=== PATIENT | female | born 1935 | race Caucasian/White ===

== ENCOUNTER → 2016-10-26 | Outpatient (CLI) | payer MEDICARE ==
--- NOTE | 2016-10-27 07:01 | XR ---
EXAMINATION TYPE: XR cervical spine comp DATE OF EXAM: 10/26/2016 9:25 AM TECHNIQUE: Frontal, lateral, oblique, and open mouth view of the cervical spine are obtained. HISTORY: Cervicalgia per order COMPARISON: None FINDINGS: Osseous structures are demineralized which is noted to lower radiographic sensitivity. The cervical spine is visualized in its entirety from C1 thru the inferior C7 vertebral body level, ther e is grade 1 retrolisthesis of C3 on C4 and C4 on C5 without evidence of acute fracture or dislocatio n. There is suboptimal evaluation of C7-T1 level without attempted swimmer's view. The pre-vertebral soft tissue appears within normal limits. The C1-C2 articulation is within normal limits on the ope n mouth view. Vertebral body heights are maintained. There is multilevel moderate to advanced disc sp meli narrowing with multilevel spurring from C3-C4 through C6-C7 level. The oblique images are within normal limits. Overlying soft tissue is unremarkable. IMPRESSION: Demineralization and moderate to advanced multilevel degenerative changes as detailed abo ve.
== END | disposition home or self-care (01) ==
LOC: RADXRYALE 09:03
PROVIDERS: ATTEND Internal Medicine
DX: M47.812 Spondylosis without myelopathy or radiculopathy, cervical region (principal); M81.0 Age-related osteoporosis without current pathological fracture
CPT/HCPCS: 72050

== ENCOUNTER 2018-02-05 08:56 | Day surgery (SDC) | payer MEDICARE ==
[2018-01-31 13:36] VITALS: BMI 23.1
[2018-02-05] MEDS ORDERED: ceFAZolin IN SWFI 2 GM/20 ML SYRINGE IVP ONE (09:37)
[2018-02-05] MEDS ORDERED: ceFAZolin 1,000 MG in SODIUM CHLORIDE 0.9% IRRIGATIO 250 ML IRRIGATION ONE (09:37)
[2018-02-05 10:19] LABS: Anion Gap 16 mmol/L; Blood Urea Nitrogen 14 mg/dL (7-17); Calcium 9.6 mg/dL (8.4-10.2); Carbon Dioxide 18 mmol/L (22-30); Chloride 102 mmol/L (98-107); Glucose 112 mg/dL (74-99); Sodium 136 mmol/L (137-145)
[2018-02-05 10:38] LABS: Basophils % (A) 1 %; Eosinophils # (A) 0.1 k/uL (0-0.7); Eosinophils % (A) 1 %; HCT 41.1 % (34.0-46.0); HGB 14.2 gm/dL (11.4-16.0); Lymphocytes # (A) 1.1 k/uL (1.0-4.8); Lymphocytes % (A) 19 %; MCH 29.5 pg (25.0-35.0); MCHC 34.5 g/dL (31.0-37.0); MCV 85.6 fL (80.0-100.0); Mean Platelet Volume 6.8; Monocytes # (A) 0.5 k/uL (0-1.0); Monocytes % (A) 8 %; Neutrophils # (A) 4.3 k/uL (1.3-7.7); Neutrophils % (A) 70 %; Platelet Count 252 k/uL (150-450); RDW 13.2 % (11.5-15.5); WBC 6.1 k/uL (3.8-10.6)
[2018-02-05] MEDS ORDERED: IOPAMIDOL-370 50ML BTL INJ ONE (10:40)
[2018-02-05] MEDS ORDERED: IV FLUID CONTINUATION 400 ML IV ONE (10:41)
[2018-02-05] MEDS ORDERED: fentaNYL (PF) 50 MCG/ML 2 ML AMP IVP ONE (10:55)
[2018-02-05] MEDS: LIDOCAINE 1% (PF) 10MG/ML VIAL SQ ONE ×2 (11:06→11:56)
[2018-02-05] MEDS ORDERED: MIDAZOLAM 2 MG/2 ML VIAL IVP ONE (11:07)
[2018-02-05] MEDS ORDERED: hydrALAZINE HCL 20 MG/ML 1 ML VIAL IVP ONE (11:13)
--- NOTE | 2018-02-05 12:26 | P.PCN ---
Date of Procedure: 02/05/18 Preoperative Diagnosis: Sick sinus syndrome Postoperative Diagnosis: The same Procedure(s) Performed: Permanent pacemaker insertion, axillary venography Description of Procedure: HISTORY: This is a 82-year-old female who was referred for permanent pacemaker implantation by Dr. VC Mccullough for sick sinus syndrome. CONSENT:I have discussed the risks, benefits and alternative therapies for the above-mentioned procedure and for both sedation/analgesia as well as necessary blood product administration, if indicated, as they pertain to this patient. The patient has indicated understanding and acceptance of the risks and procedures discussed. PROCEDURE: Patient was brought to the lab in a fasting state. Patient was prepped and draped in the usual fashion. Patient was given IV sedation with fentanyl and Versed. The skin below the left clavicle was infiltrated with lidocaine. An incision was made parallel to deltopectoral groove was deepened until the pectoral fascia was exposed. A pocket was created by blunt dissection and cautery. Axillary venography was performed to delineate the course of the axillary vein. 2 sticks were performed into extrathoracic portion of the axillary vein and 2 sheaths were advanced over the guidewires and left in subclavian vein. Conscious Sedation: Versed 0.5 mg Fentanyl 50 g Duration 60 minutes LEADS: ATRIAL: This is manufactured by [employer]. Model number is [id number] and the serial number is [id number] VENTRICULAR: This is manufactured by [employer]. Model number is [id number]. The serial number is [id number]. The ventricular lead is maneuvered l with help of a straight and curved stylets into the left ventricle apical region. Satisfactory position was obtained and threshold measurements were made. The atrial lead was then maneuvered into the right atrial appendage. And thresholds were obtained. THRESHOLDS: ATRIUM: The minimal pacing threshold is 0.4 at pulse width of 0.4. The impedance is 793. P-wave: 3.3 VENTRICLE:. There minimal pacing threshold is 0.4 at pulse width of 0.4. The impedance is 1358 R-wave: 10.8 The leads and pulse generator remained in the pocket after it was washed with antibiotics. Pocket was closed in the usual fashion. The fascia was closed with 2-0 Prolene ,the subcutaneous tissue was closed with 3-0 Prolene and the skin was closed with 4-0 Prolene. PROGRAMMING: MODE: AAIR with mode switch to DDDR RATE: 60 to 1:30 OUTPUT: Atrium: 3.5 V Ventricle: 3.5 V FINAL IMPRESSION: #1 axillary venography #2. Dual-chamber permanent pacemaker. COMPLICATIONS: None PLAN: Patient will be monitored on the telemetry unit. Prophylactic antibiotics will be continued. Chest x-ray in a.m.
--- NOTE | 2018-02-05 12:28 | P.PCN ---
Date of Procedure: 02/05/18 Preoperative Diagnosis: History of loop recorder insertion, sick sinus syndrome Postoperative Diagnosis: The same Procedure(s) Performed: Removal of the loop recorder. Description of Procedure: Patient was already prepped and draped in the usual fashion. The skin over the existing pulse generator was infiltrated with lidocaine. An incision was made in the skin and was deepened until the device is exposed. The tissue connections are freed from the device and the device was pulled out of pocket. The pocket was closed in the usual fashion. #1. Successful explantation of loop recorder.
[2018-02-05] MEDS ORDERED: hydrALAZINE HCL 50 MG TAB PO STA (13:06)
[2018-02-05] MEDS ORDERED: amLODIPine 5 MG TAB PO STA (13:14)
[2018-02-05] MEDS ORDERED: ACETAMINOPHEN IV (For NPO) 1,000 MG in EMPTY BAG 1 BAG IVPB ONE (15:00)
[2018-02-05] MEDS: SODIUM CHLORIDE 0.9% 1,000 ML IV SCH ×2 (17:28→17:46)
[2018-02-05] MEDS: ceFAZolin IN SWFI 2 GM/20 ML SYRINGE IVP SCH ×2 (17:45→22:56)
[2018-02-05] MEDS: busPIRone HCl 10 MG TAB PO SCH ×2 (17:45→21:10)
[2018-02-05] MEDS: hydrALAZINE HCL 50 MG TAB PO SCH ×2 (17:45→21:11)
[2018-02-05] MEDS: FAMOTIDINE 20 MG TAB PO SCH (21:12)
[2018-02-05] MEDS: MELOXICAM 7.5 MG TAB PO SCH (21:12)
[2018-02-05] MEDS: ACETAMINOPHEN TAB 325 MG TAB PO PRN (22:41)
[2018-02-05] MEDS: ZOLPIDEM 5 MG TAB PO PRN (22:41)
[2018-02-06] MEDS: ceFAZolin IN SWFI 2 GM/20 ML SYRINGE IVP SCH ×2 (06:52→11:47)
--- NOTE | 2018-02-06 08:27 | XR ---
EXAMINATION TYPE: XR chest 2V DATE OF EXAM: 02/06/2018 COMPARISON: None HISTORY: 82-year-old female lead placement check TECHNIQUE: Frontal and lateral views FINDINGS: Left anterior chest wall pacemaker generator with right atrial and right ventricular leads. Heart bor derline to mildly enlarged. Diffuse interstitial prominence with hyperinflation. There is some marginated density along the right heart margin at the medial right base that could rep resent positional artifact. No pleural effusion or pneumothorax. IMPRESSION: 1. COPD with borderline heart size. 2. Right atrial and right ventricular pacer leads. 3. Focal medial right basilar opacity. Uncertain if this represents projection artifact or an underly ing area of consolidation/airspace disease. Follow-up recommended with dedicated, high quality PA vie w of the chest. If the finding persists, CT may be indicated.
[2018-02-06] MEDS: SODIUM CHLORIDE 0.9% 1,000 ML IV SCH ×4 (08:38→20:13)
[2018-02-06] MEDS: FAMOTIDINE 20 MG TAB PO SCH ×2 (08:42→20:23)
[2018-02-06] MEDS: PANTOPRAZOLE 40 MG TABLET PO SCH (08:42)
[2018-02-06] MEDS: MELOXICAM 7.5 MG TAB PO SCH ×2 (08:42→20:23)
[2018-02-06] MEDS: amLODIPine 10 MG TAB PO SCH (08:42)
[2018-02-06] MEDS: hydrALAZINE HCL 50 MG TAB PO SCH ×4 (08:42→22:03)
[2018-02-06] MEDS: busPIRone HCl 10 MG TAB PO SCH ×3 (08:43→20:23)
[2018-02-06] MEDS ORDERED: CALCIUM CARBONATE 500 MG CHEWABLE PO SCH (12:00)
--- NOTE | 2018-02-06 14:43 | P.CONS ---
History of Present Illness - Reason for Consult Generalized deconditioning disposition recommendations - History of Present Illness Patient [id number]-pava-[id number] pleasant female admitted for elective Holter monitor placement patient's oxacillin underwent procedure. Patient denied any fever chills lightheadedness patient had nausea vomiting. Patient blood pressure is bit elevated was started back on her antidepressant medications. Patient takes amlodipine and GABRIELE inhibitor accommodation which was started back today. Patient has a sling to the left arm after Holter monitor placement patient normally uses a walker because of this new sling and his has recent procedure patient cannot use her walker at home because of which patient wanted to go to rehab physical therapy evaluated the patient. Please refer to the documentation for further details. Basic metabolic profile did not show any significant abnormality. Review of Systems REVIEW OF SYSTEMS: CONSTITUTIONAL: No fever, no malaise, no fatigue. HEENT: No recent visual problems or hearing problems. Denied any sore throat. CARDIOVASCULAR: No chest pain, orthopnea, PND, no palpitations, no syncope. PULMONARY: No shortness of breath, no cough, no hemoptysis. GASTROINTESTINAL: No diarrhea, no nausea, no vomiting, no abdominal pain. Normoactive bowel sounds. NEUROLOGICAL: No headaches, no weakness, no numbness. HEMATOLOGICAL: Denies any bleeding or petechiae. GENITOURINARY: Denies any burning micturition, frequency, or urgency. MUSCULOSKELETAL/RHEUMATOLOGICAL: Denies any joint pain, swelling, or any muscle pain. ENDOCRINE: Denies any polyuria or polydipsia. The rest of the 14-point review of systems is negative. Past Medical History Past Medical History: CVA/TIA, GERD/Reflux, Hyperlipidemia, Hypertension, Osteoarthritis (OA) Additional Past Medical History / Comment(s): see Dr Vieira H&P, episodes of passing out, hx sarcoidosis, uses a walker, left side weakness from TIA, hiatal hernia, something on thryoid showed on recent CT, hx anemia History of Any Multi-Drug Resistant Organisms: None Reported Past Surgical History: Appendectomy, Breast Surgery, Cholecystectomy, Heart Catheterization, Hysterectomy, Orthopedic Surgery Additional Past Surgical History / Comment(s): elbow surgery-not sure which, shweta breast biopsy, lung biopsy, shweta cataracts Past Anesthesia/Blood Transfusion Reactions: Motion Sickness Past Psychological History: No Psychological Hx Reported Smoking Status: Never smoker Past Alcohol Use History: None Reported Past Drug Use History: None Reported - Past Family History Sister(s) Family Medical History: Cancer Father Family Medical History: Pulmonary Embolus Medications and Allergies Home Medications Medication Instructions Recorded Confirmed Type Meloxicam [Mobic] 7.5 mg PO BID 02/03/16 01/31/18 History Omeprazole [PriLOSEC] 20 mg PO BID 02/03/16 01/31/18 History busPIRone HCL 10 mg PO TID 02/03/16 01/31/18 History hydrALAZINE HCL [Apresoline] 50 mg PO TID 02/03/16 01/31/18 History Calcium Carbonate [Calcium] 1,200 mg PO SUWE 01/31/18 02/05/18 History Famotidine 20 mg PO BID 01/31/18 01/31/18 History amLODIPine BESYLATE/BENAZEPRIL 1 cap PO DAILY 01/31/18 01/31/18 History [amLODIPine BESYLATE/BENAZEPRIL 10-40 mg] Zolpidem Tartrate [Ambien] 5 mg PO HS PRN 02/05/18 02/05/18 History Allergies Allergy/AdvReac Type Severity Reaction Status Date / Time lidocaine Allergy passed out Verified 01/31/18 13:24 nitroglycerin Allergy passed out Verified 01/31/18 13:24 Sulfa (Sulfonamide Allergy Unknown Verified 01/31/18 13:24 Antibiotics) Childhood Physical Exam Vitals: Vital Signs Temp Pulse Resp BP Pulse Ox 02/06/18 12:00 82 02/06/18 10:42 97.8 F 93 18 184/82 95 02/06/18 07:20 97.6 F 81 18 196/90 97 02/06/18 04:00 16 02/06/18 03:36 97.9 F 83 16 180/86 95 02/06/18 00:00 16 02/05/18 23:25 97.7 F 86 16 188/84 92 L 02/05/18 19:48 83 16 02/05/18 19:04 98.3 F 83 16 184/83 95 02/05/18 17:44 193/86 02/05/18 16:00 16 02/05/18 15:30 16 185/81 94 L Intake and Output 02/05/18 02/06/18 02/06/18 22:59 06:59 14:59 Intake Total 240 Balance 240 Intake: Oral 240 Other: Voiding Method Toilet Toilet # Voids 2 1 1 Weight 63.049 kg PHYSICAL EXAMINATION: GENERAL: The patient is alert and oriented x3, not in any acute distress. Well developed, well nourished. HEENT: Pupils are round and equally reacting to light. EOMI. No scleral icterus. No conjunctival pallor. Normocephalic, atraumatic. No pharyngeal erythema. No thyromegaly. CARDIOVASCULAR: S1 and S2 present. No murmurs, rubs, or gallops. PULMONARY: Chest is clear to auscultation, no wheezing or crackles. ABDOMEN: Soft, nontender, nondistended, normoactive bowel sounds. No palpable organomegaly. MUSCULOSKELETAL: No joint swelling or deformity. Postoperatively patient has a sling to left arm EXTREMITIES: No cyanosis, clubbing, or pedal edema. NEUROLOGICAL: Gross neurological examination did not reveal any focal deficits. SKIN: No rashes. Results CBC & Chem 7: 02/05/18 10:00 02/05/18 10:00 Assessment and Plan Plan: -Generalized deconditioning and inability to use her walker, patient probably need to go to subacute rehabilitation. -Hypertension elevated blood pressures secondary to IV fluids and patient was not taking her antidepressant medications which are started back. -Possibly of sick sinus syndrome for which patient underwent Holter monitor placement -Gastroesophageal reflux disease -Hyperlipidemia -CVA TIA in the past. -Patient will need GI prophylaxis as well as DVT prophylaxis pharmacologic For above-mentioned chronic medical problems patient will be resumed and continued on her home medications which have is appropriate
[2018-02-06] MEDS: HEPARIN SODIUM,PORCINE 5,000 UNIT/ML 1 ML VIAL SQ SCH (20:24)
[2018-02-06] MEDS: ZOLPIDEM 5 MG TAB PO PRN (22:09)
[2018-02-06] MEDS: ACETAMINOPHEN TAB 325 MG TAB PO PRN (22:10)
[2018-02-07] MEDS: hydrALAZINE HCL 50 MG TAB PO SCH ×4 (08:28→20:17)
[2018-02-07] MEDS: amLODIPine 10 MG TAB PO SCH (08:28)
[2018-02-07] MEDS: FAMOTIDINE 20 MG TAB PO SCH ×2 (08:28→20:16)
[2018-02-07] MEDS: MELOXICAM 7.5 MG TAB PO SCH ×2 (08:28→20:16)
[2018-02-07] MEDS: PANTOPRAZOLE 40 MG TABLET PO SCH (08:29)
[2018-02-07] MEDS: busPIRone HCl 10 MG TAB PO SCH ×3 (08:29→20:16)
[2018-02-07] MEDS: HEPARIN SODIUM,PORCINE 5,000 UNIT/ML 1 ML VIAL SQ SCH ×2 (08:29→20:17)
--- NOTE | 2018-02-07 12:58 | P.PN ---
Subjective Patient is status post Holter monitor placement patient blood pressures elevated consistently I'm adding hydrochlorothiazide patient denied any symptoms at this time. Constitutional: Denied any fatigue denied any fever. Cardio vascular: denied any chest pain, palpitations Gastrointestinal denied any nausea vomiting Pulmonary: Denied any shortness of breath cough Neurologic denied any new focal deficits Objective - Vital Signs Vital signs: Vital Signs Temp 97.7 F 02/07/18 11:25 Pulse 81 02/07/18 12:00 Resp 18 02/07/18 12:00 BP 191/90 02/07/18 11:25 Pulse Ox 94 L 02/07/18 11:25 Intake & Output 02/06/18 02/07/18 02/07/18 18:59 06:59 18:59 Intake Total 690 240 400 Balance 690 240 400 Weight 63.049 kg Intake: Oral 490 240 400 Other 200 Other: Voiding Method Toilet Toilet # Voids 1 2 1 - Exam PHYSICAL EXAMINATION: GENERAL: The patient is alert and oriented x3, not in any acute distress. Well developed, well nourished. HEENT: Pupils are round and equally reacting to light. EOMI. No scleral icterus. No conjunctival pallor. Normocephalic, atraumatic. No pharyngeal erythema. No thyromegaly. CARDIOVASCULAR: S1 and S2 present. No murmurs, rubs, or gallops. PULMONARY: Chest is clear to auscultation, no wheezing or crackles. ABDOMEN: Soft, nontender, nondistended, normoactive bowel sounds. No palpable organomegaly. MUSCULOSKELETAL: No joint swelling or deformity. EXTREMITIES: No cyanosis, clubbing, or pedal edema. NEUROLOGICAL: Gross neurological examination did not reveal any focal deficits. SKIN: No rashes. - Labs CBC & Chem 7: 02/05/18 10:00 02/05/18 10:00 Assessment and Plan Plan: -Generalized deconditioning and inability to use her walker, patient probably need to go to subacute rehabilitation. Awaiting approval from her insurance -Hypertension elevated blood pressures secondary to IV fluids which were discontinued yesterday in spite of which her blood pressure is consistently high started on hydrochlorothiazide and basic metabolic profile will be obtained as her sodium remains low normal at this time. -Possibly of sick sinus syndrome for which patient underwent Holter monitor placement -Gastroesophageal reflux disease -Hyperlipidemia -CVA TIA in the past. -Patient will need GI prophylaxis as well as DVT prophylaxis pharmacologic For above-mentioned chronic medical problems patient will be resumed and continued on her home medications which have is appropriate
[2018-02-07] MEDS: HYDROCHLOROTHIAZIDE 50 MG TAB PO SCH (13:17)
[2018-02-07] MEDS: ZOLPIDEM 5 MG TAB PO PRN (21:44)
[2018-02-07] MEDS: ACETAMINOPHEN TAB 325 MG TAB PO PRN (21:44)
[2018-02-08 07:14] LABS: Anion Gap 11 mmol/L; Blood Urea Nitrogen 11 mg/dL (7-17); Calcium 9.4 mg/dL (8.4-10.2); Carbon Dioxide 22 mmol/L (22-30); Chloride 97 mmol/L (98-107); Glucose 96 mg/dL (74-99); Potassium 3.3 mmol/L (3.5-5.1); Sodium 130 mmol/L (137-145)
[2018-02-08] MEDS: busPIRone HCl 10 MG TAB PO SCH (07:51)
[2018-02-08] MEDS: PANTOPRAZOLE 40 MG TABLET PO SCH (07:52)
[2018-02-08] MEDS: FAMOTIDINE 20 MG TAB PO SCH (07:52)
[2018-02-08] MEDS: hydrALAZINE HCL 50 MG TAB PO SCH ×2 (07:52→12:42)
[2018-02-08] MEDS: amLODIPine 10 MG TAB PO SCH (07:52)
[2018-02-08] MEDS: HYDROCHLOROTHIAZIDE 50 MG TAB PO SCH (07:53)
[2018-02-08] MEDS: MELOXICAM 7.5 MG TAB PO SCH (07:53)
[2018-02-08] MEDS: HEPARIN SODIUM,PORCINE 5,000 UNIT/ML 1 ML VIAL SQ SCH (07:58)
--- NOTE | 2018-02-08 08:22 | P.PN ---
Subjective Progress Note Date: 02/08/18 82-year-old female was admitted for permanent pacemaker implantation because of sick sinus syndrome. Patient had a dual-chamber pacemaker and has done well. Her blood pressure still fluctuating in the range of 180-200 systolic. She is on hydralazine and Norvasc. I'm going to add Catapres 0.1 mg once daily and see. She can tolerate. She is going to a nursing facility because of her being alone and unable to handle post Pacemaker management. She also uses walker. Patient is otherwise doing well. Lungs are clear. Heart is regular Objective - Vital Signs Vital signs: Vital Signs Temp 97.6 F 02/08/18 08:00 Pulse 96 02/08/18 08:00 Resp 16 02/08/18 08:00 BP 198/98 02/08/18 08:00 Pulse Ox 96 02/08/18 08:00 Intake & Output 02/07/18 02/08/18 02/08/18 18:59 06:59 18:59 Intake Total 1440 Balance 1440 Intake: Oral 1240 Other 200 Other: Voiding Method Toilet Toilet # Voids 1 2 - Exam GENERAL EXAM: Patient is alert and oriented and doesn't appear to be in any acute distress HEENT: Normocephalic. Normal reaction of pupils, equal size, normal range of extraocular motion. No erythema or exudates in the throat. NECK: No masses, no nuchal rigidity. CHEST: No chest wall deformity. LUNGS: Equal air entry with no crackles or wheeze. HEART: S1 and S2 normal with no audible mumurs or gallops. Regular rhythm, femorals equal on both sides.. ABDOMEN: No hepatosplenomegaly, normal bowel sounds, no guarding or rigidity. SKIN: No rashes CENTRAL NERVOUS SYSTEM: No focal deficits. EXTREMITIES: No cyanosis, clubbing or edema. - Labs CBC & Chem 7: 02/05/18 10:00 02/08/18 06:30 Labs: Abnormal Lab Results - Last 24 Hours (Table) 02/08/18 Range/Units 06:30 Sodium 130 L (137-145) mmol/L Potassium 3.3 L (3.5-5.1) mmol/L Chloride 97 L (98-107) mmol/L Assessment and Plan (1) Uncontrolled hypertension Current Visit: Yes Status: Acute Code(s): I10 - ESSENTIAL (PRIMARY) HYPERTENSION SNOMED Code(s): 34952290 (2) Sick sinus syndrome Current Visit: Yes Status: Acute Code(s): I49.5 - SICK SINUS SYNDROME SNOMED Code(s): 07933239 (3) Pacemaker Current Visit: Yes Status: Acute Code(s): Z95.0 - PRESENCE OF CARDIAC PACEMAKER SNOMED Code(s): 832149594 Plan: He had Catapres for better control of blood pressure. Increase activity. Possible discharge today.
[2018-02-08] MEDS ORDERED: cloNIDine HCL 0.1 MG TAB PO SCH (09:00)
[2018-02-08] MEDS ORDERED: POTASSIUM CHLORIDE ER 20 MEQ TAB.ER PO STA (11:02)
--- NOTE | 2018-02-08 11:29 | P.DS ---
Providers Date of admission: 02/05/2018 Attending physician: Chapin Vieira Consults: 02/06/18 13:03 Consult Physician Stat Consulting Provider: Sarah Cabello Consult Reason/Comments: HTN, med management Do you want consulting provider notified?: Already Contacted Primary care physician: Swapna Nur - Discharge Diagnosis(es) (1) Uncontrolled hypertension Status: Acute (2) Sick sinus syndrome Status: Acute (3) Pacemaker Status: Acute Hospital Course: This is a 82-year-old female who was admitted to the hospital for permanent pacemaker implantation because of sick sinus syndrome and symptoms of dizziness. Patient had a dual-chamber permanent pacemaker implantation. Patient tolerated the procedure well. However, patient blood pressure has been fluctuating and has been as high as 200. Patient also was unable to take care of herself because she lives by herself and also uses a walker. Patient is being sent to a nursing facility. She is otherwise doing well. No arrhythmias are noted. Chest x-ray is normal. Patient is ambulating here patient is being discharged home in a stable condition. Patient is given usual post pacemaker insertion instructions. Patient is advised to keep the left arm below the shoulder level. Patient to keep the pacemaker site dry until seen in the office. She is advised to report if she notices any undue swelling, pain, fever or chills. Follow-up in the office by . Dr. VC Mccullough in one week Plan - Discharge Summary Discharge Rx Participant: No New Discharge Prescriptions: Continue busPIRone HCL 10 mg PO TID Omeprazole [PriLOSEC] 20 mg PO BID Meloxicam [Mobic] 7.5 mg PO BID amLODIPine BESYLATE/BENAZEPRIL [amLODIPine BESYLATE/BENAZEPRIL 10-40 mg] 1 cap PO DAILY Calcium Carbonate [Calcium] 1,200 mg PO SUWE Zolpidem Tartrate [Ambien] 5 mg PO HS PRN PRN Reason: Insomnia Changed hydrALAZINE HCL [Apresoline] 100 mg PO TID #0 Discontinued Famotidine 20 mg PO BID Discharge Medication List Meloxicam [Mobic] 7.5 mg PO BID 02/03/16 [History] Omeprazole [PriLOSEC] 20 mg PO BID 02/03/16 [History] busPIRone HCL 10 mg PO TID 02/03/16 [History] Calcium Carbonate [Calcium] 1,200 mg PO SUWE 01/31/18 [History] amLODIPine BESYLATE/BENAZEPRIL [amLODIPine BESYLATE/BENAZEPRIL 10-40 mg] 1 cap PO DAILY 01/31/18 [History] Zolpidem Tartrate [Ambien] 5 mg PO HS PRN 02/05/18 [History] hydrALAZINE HCL [Apresoline] 100 mg PO TID #0 02/08/18 [Rx] Discharge Disposition: TRANSFER TO SNF/ECF
[2018-02-08 11:50] VITALS: BP 159/96; PULSE 78; RESP 16; TEMP 97.4
--- NOTE | 2018-02-08 15:45 | P.PN ---
Subjective Patient is status post Holter monitor placement patient blood pressures elevated consistently I'm adding hydrochlorothiazide patient denied any symptoms at this time. 02/08/2018 Patient is being discharged to subacute rehabilitation, blood pressures come down with hydrocodone presently but unfortunately sodium and potassium drop her potassium will be replaced and HIDA chlorothiazide will be discontinued will increase the dose of hydralazine from 50 to 100mg 3 times a day Constitutional: Denied any fatigue denied any fever. Cardio vascular: denied any chest pain, palpitations Gastrointestinal denied any nausea vomiting Pulmonary: Denied any shortness of breath cough Neurologic denied any new focal deficits Objective - Vital Signs Vital signs: Vital Signs Temp 97.4 F L 02/08/18 11:49 Pulse 78 02/08/18 11:49 Resp 16 02/08/18 11:49 BP 159/96 02/08/18 11:49 Pulse Ox 96 02/08/18 11:49 Intake & Output 02/07/18 02/08/18 02/08/18 18:59 06:59 18:59 Intake Total 1440 Balance 1440 Intake: Oral 1240 Other 200 Other: Voiding Method Toilet Toilet # Voids 1 2 - Exam PHYSICAL EXAMINATION: GENERAL: The patient is alert and oriented x3, not in any acute distress. Well developed, well nourished. HEENT: Pupils are round and equally reacting to light. EOMI. No scleral icterus. No conjunctival pallor. Normocephalic, atraumatic. No pharyngeal erythema. No thyromegaly. CARDIOVASCULAR: S1 and S2 present. No murmurs, rubs, or gallops. PULMONARY: Chest is clear to auscultation, no wheezing or crackles. ABDOMEN: Soft, nontender, nondistended, normoactive bowel sounds. No palpable organomegaly. MUSCULOSKELETAL: No joint swelling or deformity. EXTREMITIES: No cyanosis, clubbing, or pedal edema. NEUROLOGICAL: Gross neurological examination did not reveal any focal deficits. SKIN: No rashes. - Labs CBC & Chem 7: 02/05/18 10:00 02/08/18 06:30 Labs: Abnormal Lab Results - Last 24 Hours (Table) 02/08/18 Range/Units 06:30 Sodium 130 L (137-145) mmol/L Potassium 3.3 L (3.5-5.1) mmol/L Chloride 97 L (98-107) mmol/L Assessment and Plan Plan: -Generalized deconditioning and inability to use her walker, patient is being discharged to subacute rehabilitation today -Hypertension elevated blood pressures secondary to IV fluids and above -Possibly of sick sinus syndrome for which patient underwent Holter monitor placement -Gastroesophageal reflux disease -Hyperlipidemia -CVA TIA in the past. For above-mentioned chronic medical problems patient will be resumed and continued on her home medications which have is appropriate
== END 2018-02-08 13:35 | disposition home or self-care (01) ==
LOC: CATHEP 08:56 → 3OBS 14:26 → CATHEP 02-08 13:35
PROVIDERS: ATTEND Internal Medicine Cardiovascular Disease
DX: I49.5 Sick sinus syndrome (principal); R53.1 Weakness; E78.5 Hyperlipidemia, unspecified; I10 Essential (primary) hypertension; J44.9 Chronic obstructive pulmonary disease, unspecified; R91.8 Other nonspecific abnormal finding of lung field; I69.354 Hemiplegia and hemiparesis following cerebral infarction affecting left non-dominant side; M19.90 Unspecified osteoarthritis, unspecified site; K21.9 Gastro-esophageal reflux disease without esophagitis; Z79.1 Long term (current) use of non-steroidal anti-inflammatories (NSAID); Z79.899 Other long term (current) drug therapy; Z88.4 Allergy status to anesthetic agent; Z88.8 Allergy status to other drugs, medicaments and biological substances; Z88.2 Allergy status to sulfonamides
CPT/HCPCS: 97161; 97165; 33208; 80048 ×2; 85025; 71046; C1769 ×2; C1892; C1898 ×2; C1785; J2250; J0360; J1644 ×3; J0690 ×3; J3010; J2001; Q9967